=== PATIENT | male | born 1985 | race Caucasian/White ===

== ENCOUNTER 2019-08-01 22:57 | Emergency (ER) | payer OTHER ==
[2019-08-01] MEDS ORDERED: ACET/COD 300 MG/30 MG STARTER PACK 6 TAB BTL PO STA (23:12)
[2019-08-01] MEDS ORDERED: KETOROLAC 30 MG/ML 1 ML VIAL IM STA (23:12)
--- NOTE | 2019-08-01 23:24 | XR ---
EXAMINATION TYPE: XR foot complete RT DATE OF EXAM: 08/01/2019 COMPARISON: NONE HISTORY: Fall. Pain. TECHNIQUE: FINDINGS: 3 views show intact metatarsals. There is some plantar and Achilles calcaneal spurring. I s ee no fracture nor dislocation. There are no erosions. IMPRESSION: Calcaneal spurring. No fracture.
--- NOTE | 2019-08-01 23:25 | XR ---
EXAMINATION TYPE: XR ankle complete RT DATE OF EXAM: 08/01/2019 COMPARISON: NONE HISTORY: Pain. Fall. TECHNIQUE: 3 views FINDINGS: Ankle mortise is anatomic. I see no fracture nor dislocation. There is calcaneal spurring. Subtalar joint appears normal. IMPRESSION: Calcaneal spurring. No fracture seen.
[2019-08-01 23:29] VITALS: BP 130/67; PULSE 111; RESP 20; TEMP 98.3
--- NOTE | 2019-08-01 23:33 | ED ---
Lower Extremity Injury HPI - General Chief Complaint: Extremity Injury, Lower Stated Complaint: Fall, R Ankle Injury Time Seen by Provider: 08/01/19 23:08 Source: patient Mode of arrival: wheelchair Limitations: no limitations - History of Present Illness Initial Comments: 34-year-old male patient presents to the emergency department today for evaluation of right ankle pain. Patient states approximately 30 minutes ago he slipped and fell on the ice. Patient states he had immediate pain to the lateral part of his right ankle. Patient states the area immediately became swollen. Patient states he is having some difficulty walking. He denies any numbness or tingling to the foot. States he did have a broken ankle in the past but is unsure if it was this ankle or the other. He denies hitting his head or losing consciousness during the fall. Denies any neck or back pain. Denies any other injuries. Patient denies any headache, neck pain, back pain, chest pain, shortness of breath, dizziness, weakness, abdominal pain, nausea, vomiting, or difficulties with bowel movements or urination. - Related Data Previous Rx's Medication Instructions Recorded Ibuprofen [Motrin] 600 mg PO Q8HR PRN #30 tab 08/01/19 Allergies Allergy/AdvReac Type Severity Reaction Status Date / Time No Known Allergies Allergy Verified 08/01/19 23:03 Review of Systems ROS Statement: Those systems with pertinent positive or pertinent negative responses have been documented in the HPI. ROS Other: All systems not noted in ROS Statement are negative. Past Medical History Past Medical History: No Reported History History of Any Multi-Drug Resistant Organisms: None Reported Past Surgical History: No Surgical Hx Reported Past Psychological History: No Psychological Hx Reported Smoking Status: Current every day smoker Past Alcohol Use History: None Reported Past Drug Use History: Marijuana General Exam Limitations: no limitations General appearance: alert, in no apparent distress, other (This is a well- developed, well-nourished adult male patient in no acute distress. Vital signs upon presentation are temperature 98.3F, pulse 111, respirations 20, blood pressure 130/67, pulse ox 99% on room air.) Respiratory exam: Present: normal lung sounds bilaterally. Absent: respiratory distress, wheezes, rales, rhonchi, stridor Cardiovascular Exam: Present: regular rate, normal rhythm, normal heart sounds. Absent: systolic murmur, diastolic murmur, rubs, gallop, clicks Extremities exam: Present: full ROM, tenderness (Tenderness over the right lateral malleolus), normal capillary refill, other (There is soft tissue swelling surrounding the right lateral malleolus. Tenderness over this area. There is mild tenderness over the proximal fifth metatarsal. Skin is otherwise pink, warm, dry. Cap refills less than 3 seconds. Radial pulses 2+ and equal bilaterally.). Absent: pedal edema, joint swelling, calf tenderness Neurological exam: Present: alert, oriented X3, CN II-XII intact Psychiatric exam: Present: normal affect, normal mood Skin exam: Present: warm, dry, intact, normal color. Absent: rash Course Vital Signs 08/01/19 23:02 Temperature 98.3 F Pulse Rate 111 H Respiratory 20 Rate Blood Pressure 130/67 O2 Sat by Pulse 99 Oximetry Medical Decision Making - Medical Decision Making 34-year-old male patient presented to the emergency department today for evaluation of right ankle pain and swelling. Physical examination did reveal swelling surrounding the right lateral malleolus. Neurovascular status is intact. X-ray was negative for any acute fractures. Symptoms are consistent with ankle sprain. We did wrap with Ty wrap and applied an ankle stirrup spl int. He was given Toradol injection and Tylenol with codeine. Discharge follow up with his primary care physician for recheck in 1-2 days. He is instructed to have repeat x-rays performed in 7-10 days if pain symptoms persist. Return parameters were discussed in detail. He verbalizes understanding and agrees with this plan. - Radiology Data Radiology results: report reviewed, image reviewed 3 views of the right ankle are obtained. Report reviewed in its entirety. Impression by Dr. Blake shows calcaneal spurring. No fracture seen. 3 views of the right foot are obtained. Report was reviewed in its entirety. Impression by Dr. Blake shows calcaneal spurring. No fracture. Disposition Clinical Impression: Right ankle sprain Disposition: HOME SELF-CARE Condition: Good Instructions (If sedation given, give patient instructions): Ankle Sprain (ED) Additional Instructions: Rest, ice, and elevate the right ankle. Use splint for comfort and support. Take Tylenol and Motrin for pain control. Follow-up with your primary care physician for recheck in 1-2 days. If pain symptoms persist beyond 7-10 days have repeat x-ray performed. Return to the emergency department for any new, worsening, or concerning symptoms. Prescriptions: Ibuprofen [Motrin] 600 mg PO Q8HR PRN #30 tab PRN Reason: Pain Is patient prescribed a controlled substance at d/c from ED?: No Referrals: Edgar Chacko MD [Primary Care Provider] - 1-2 days Time of Disposition: 23:33
== END 2019-08-01 23:58 | disposition home or self-care (01) ==
LOC: EC 22:57
DX: S93.401A Sprain of unspecified ligament of right ankle, initial encounter (principal); F17.200 Nicotine dependence, unspecified, uncomplicated; Z87.81 Personal history of (healed) traumatic fracture; W00.0XXA Fall on same level due to ice and snow, initial encounter; Y92.89 Other specified places as the place of occurrence of the external cause
CPT/HCPCS: 73610; 73630; 99283; 29515; 96372; J1885

== ENCOUNTER 2019-08-21 12:08 | Emergency (ER) | payer BC ==
--- NOTE | 2019-08-21 12:12 | US ---
EXAMINATION TYPE: US venous doppler duplex LE RT DATE OF EXAM: 08/21/2019 11:17 AM COMPARISON: NONE CLINICAL HISTORY: I80.9 Plebitis. Right leg swelling x 3 weeks SIDE PERFORMED: Right TECHNIQUE: The lower extremity deep venous system is examined utilizing real time linear array sonog bryant with graded compression, doppler sonography and color-flow sonography. VESSELS IMAGED: External Iliac Vein (EIV) Common Femoral Vein Deep Femoral Vein Greater Saphenous Vein * Femoral Vein Popliteal Vein Small Saphenous Vein * Proximal Calf Veins (* superficial vessels) Right Leg: Appears positive for DVT in popliteal vein and distal femoral vein IMPRESSION: Positive deep venous thrombosis within the popliteal vein and distal femoral vein of the right lower extremity. Results were called to [facility] at the end of examinatio n and documented at 1120am by the steamfitter supervisor Zayra Dhillon.
[2019-08-21 12:17] VITALS: RESP 20; TEMP 98.4
[2019-08-21 12:29] LABS: HCT 45.8 % (39.0-53.0); HGB 15.5 gm/dL (13.0-17.5); MCH 31.3 pg (25.0-35.0); MCHC 33.8 g/dL (31.0-37.0); MCV 92.8 fL (80.0-100.0); Mean Platelet Volume 7.4; Platelet Count 221 k/uL (150-450); RBC 4.94 m/uL (4.30-5.90); RDW 12.1 % (11.5-15.5); WBC 8.8 k/uL (3.8-10.6)
[2019-08-21] MEDS ORDERED: APIXABAN 5 MG TAB PO STA (13:08)
--- NOTE | 2019-08-21 13:15 | ED ---
Lower Extremity Injury HPI - General Chief Complaint: Extremity Injury, Lower Stated Complaint: blood clot in right leg Time Seen by Provider: 08/21/19 12:45 Source: patient, RN notes reviewed, old records reviewed Mode of arrival: ambulatory Limitations: no limitations - History of Present Illness Initial Comments: Patient is a 34 year old male sent from outpatient US with diagnosed DVT in R popliteal and femoral vein. Patient reports he sprained his ankle 3 weeks ago and is having persistent pain. Patient reports he went to ortho today, whom sent him for US for blood clot. He is a smoker. Patient reports that he has no chest pain or shortness of breath. Denies hx of blood clot. - Related Data Previous Rx's Medication Instructions Recorded Ibuprofen [Motrin] 600 mg PO Q8HR PRN #30 tab 08/01/19 Apixaban [Eliquis Starter Pack 0 mg PO DIRECTED 30 Days #1 pack 08/21/19 (for VTE)] Allergies Allergy/AdvReac Type Severity Reaction Status Date / Time No Known Allergies Allergy Verified 08/21/19 12:17 Review of Systems ROS Statement: Those systems with pertinent positive or pertinent negative responses have been documented in the HPI. ROS Other: All systems not noted in ROS Statement are negative. Past Medical History Past Medical History: Deep Vein Thrombosis (DVT) History of Any Multi-Drug Resistant Organisms: None Reported Past Surgical History: No Surgical Hx Reported Past Psychological History: No Psychological Hx Reported Smoking Status: Current every day smoker Past Alcohol Use History: None Reported Past Drug Use History: Marijuana General Exam - General Exam Comments Initial Comments: 34 year old male, no distress. Limitations: no limitations General appearance: alert, in no apparent distress Head exam: Present: atraumatic, normocephalic, normal inspection Eye exam: Present: normal appearance, PERRL, EOMI. Absent: scleral icterus, conjunctival injection, periorbital swelling ENT exam: Present: normal exam, mucous membranes moist Neck exam: Present: normal inspection. Absent: tenderness, meningismus, lymphadenopathy Respiratory exam: Present: normal lung sounds bilaterally. Absent: respiratory distress, wheezes, rales, rhonchi, stridor Cardiovascular Exam: Present: regular rate, normal rhythm, normal heart sounds. Absent: systolic murmur, diastolic murmur, rubs, gallop, clicks GI/Abdominal exam: Present: soft, normal bowel sounds. Absent: distended, tenderness, guarding, rebound, rigid Extremities exam: Present: full ROM, normal capillary refill. Absent: normal inspection, tenderness, pedal edema, joint swelling, calf tenderness Right Knee exam: Present: normal inspection, full ROM Lower Leg exam: Present: normal inspection, tenderness, swelling, erythema, Homans' sign Ankle exam: Present: tenderness, swelling. Absent: normal inspection, full ROM Foot/Toe exam: Present: normal inspection, full ROM Neurovascular tendon exam: Present: no vascular compromise Back exam: Present: normal inspection Neurological exam: Present: alert, oriented X3, CN II-XII intact Psychiatric exam: Present: normal affect, normal mood Skin exam: Present: warm, dry, intact, normal color. Absent: rash Course Vital Signs 08/21/19 08/21/19 12:13 13:19 Temperature 98.4 F 98.4 F Pulse Rate 95 91 Respiratory 20 20 Rate Blood Pressure 138/79 132/77 O2 Sat by Pulse 99 99 Oximetry Medical Decision Making - Medical Decision Making 34 year old male presents with positive US for DVT in R leg. Patient has ankle sprain 3 weeks ago, which provoked DVT. AT this time patient started on eliquis, and given dose in ED. Given starter pack for one month supply. Return parameters discussed. - Lab Data Result diagrams: 08/21/19 11:41 Lab Results 08/21/19 08/21/19 Range/Units 11:41 11:41 WBC 8.8 (3.8-10.6) k/uL RBC 4.94 (4.30-5.90) m/uL Hgb 15.5 (13.0-17.5) gm/dL Hct 45.8 (39.0-53.0) % MCV 92.8 (80.0-100.0) fL MCH 31.3 (25.0-35.0) pg MCHC 33.8 (31.0-37.0) g/dL RDW 12.1 (11.5-15.5) % Plt Count 221 (150-450) k/uL ESR 15 (0-15) mm/hr C-Reactive Protein 14.3 H (<10.0) mg/L - Radiology Data Radiology results: report reviewed US is positive for distal femoral vein to popliteal vein. Disposition Clinical Impression: Right leg DVT Disposition: HOME SELF-CARE Condition: Good Instructions (If sedation given, give patient instructions): Apixaban (By mouth), Deep Vein Thrombosis (ED) Additional Instructions: Take the medication as prescribed. Patient should be off work until following up with primary care doctor and [place]. Return to ED if any alarming signs or symptoms occur. Prescriptions: Apixaban [Eliquis Starter Pack (for VTE)] 0 mg PO DIRECTED 30 Days #1 pack Is patient prescribed a controlled substance at d/c from ED?: No Referrals: Edgar Chacko MD [Primary Care Provider] - 1-2 days Time of Disposition: 13:13
[2019-08-21 13:20] VITALS: BP 132/77; PULSE 91
[2019-08-21 13:39] LABS: Erythrocyte Sedimentation Rate 15 mm/hr (0-15)
== END 2019-08-21 13:21 | disposition home or self-care (01) ==
LOC: EC 12:08
DX: I82.431 Acute embolism and thrombosis of right popliteal vein (principal); I82.411 Acute embolism and thrombosis of right femoral vein; S93.401A Sprain of unspecified ligament of right ankle, initial encounter; F17.200 Nicotine dependence, unspecified, uncomplicated; W19.XXXA Unspecified fall, initial encounter; Y92.009 Unspecified place in unspecified non-institutional (private) residence as the place of occurrence of the external cause
CPT/HCPCS: 36415; 83520; 85027; 85652; 86140; 99284